=== PATIENT | female | born 1960 | race Caucasian/White ===

== ENCOUNTER 2020-09-30 16:48 | Emergency (ER) | payer SELFPAY ==
[2020-09-30 17:10] VITALS: BP 162/75; PULSE 88; RESP 20; TEMP 36.9; O2SAT 100
--- NOTE | 2020-09-30 17:23 | ED.SKABFB ---
HPI - Skin/Abscess/Foreign Bdy General Chief complaint: Skin/Abscess/Foreign Body Stated complaint: Cellulitis Time Seen by Provider: 09/30/20 17:16 Source: patient and RN notes reviewed Mode of arrival: ambulatory Limitations: no limitations History of Present Illness HPI narrative: Patient presents today complaining of a 2-day history of redness and possible cellulitis to her face. States it occasionally itches. Denies pain. States it is not continuing to worsen, but states it may be slightly improving. Denies any drainage. She has been using some antibacterial cream at home. History of diabetes. MD complaint: other ( Cellulitis ) Related Data Home Medications Medication Instructions Recorded Confirmed gabapentin 300 mg PO BID 09/30/20 09/30/20 insulin glargine U-300 conc 30 unit SUBCUT DAILY 09/30/20 09/30/20 [Toujeo SoloStar U-300 Insulin] insulin lispro [Humalog KwikPen 1 unit SUBCUT DIRECTED 09/30/20 09/30/20 Insulin] levothyroxine 75 mcg PO DAILY 09/30/20 09/30/20 losartan 25 mg PO DAILY 09/30/20 09/30/20 lovastatin 40 mg PO DAILY 09/30/20 09/30/20 metformin 1,000 mg PO BID 09/30/20 09/30/20 Allergies Allergy/AdvReac Type Severity Reaction Status Date / Time No Known Allergies Allergy Unknown Unverified 09/30/20 17:23 Review of Systems Review of Systems: Narrative: CONSTITUTIONAL: Denies body aches, fever, chills, or sweats. EYES: Denies visual changes, redness, or discharge. ENT: Denies rhinorrhea, congestion, sore throat, or otalgia. CARDIOVASCULAR: Denies chest pain, palpitations, or edema. RESPIRATORY: Denies cough or dyspnea. GASTROINTESTINAL: Denies abdominal pain, nausea, vomiting, or diarrhea. GENITOURINARY: Denies dysuria or hematuria. SKIN: Denies rash, itching, or wounds. + Redness to face MUSCULOSKELETAL: Denies back pain, joint pain, or myalgia. NEUROLOGIC: Denies headache, numbness, tingling, or weakness. PSYCH: Denies depression or anxiety. [facility] Past Medical History Medical History (Updated 09/30/20 @ 17:30 by Lea Whitehead, [facility], ) Diabetes Hypercholesterolemia Hypertension Hypothyroidism Neuropathy Surgical History Surgical History (Updated 09/30/20 @ 17:30 by Lea Whitehead, [facility], ) H/O tubal ligation Comments At time of signature, I have reviewed and agree with nursing past medical, surgical, social and family history unless otherwise noted. Please see nursing chart for further information. There is no relevant family history pertinent to the presenting complaint Exam Narrative: Exam Narrative: GENERAL: Well-appearing, well-nourished, and in no acute distress. HEAD: Normocephalic, atraumatic. EYES: EOMI. No redness or drainage. Conjunctivae normal. ENT: Mucous membranes pink and moist. Redness and with honey crusting to the proximal half of the nasal bridge extending to the left eyebrow and superior half of the left eyelid. No edema noted. No induration noted. Nontender. No wounds noted. NECK: Normal AROM. CHEST: No respiratory distress. EXTREMITIES: Normal range of motion. No edema. SKIN: Warm, dry, no rash. Capillary refill normal. Normal skin turgor. NEURO: No focal deficits. Alert and oriented x3. Gait steady. PSYCH: Normal affect. No signs of depression or anxiety. Course Vital Signs Vital signs: Vital Signs Temperature 98.4 F 09/30/20 17:10 Pulse Rate 88 09/30/20 17:10 Respiratory Rate 09/30/20 17:10 Blood Pressure 162/75 H 09/30/20 17:10 Pulse Oximetry 100 09/30/20 17:10 Temperature 98.4 F 09/30/20 17:10 Pulse Rate 88 09/30/20 17:10 Respiratory Rate 09/30/20 17:10 Blood Pressure 162/75 H 09/30/20 17:10 Pulse Oximetry 100 09/30/20 17:10 Reviewed. Pt has been instructed to follow up with her PCP regarding her elevated blood pressure today. MDM - Skin/Abscess/Foreign Bdy Differential Diagnosis Differential diagnosis: Likely abscess of skin or subcutaneous tissue, urticaria, herpes
== END 2020-09-30 17:30 | disposition home or self-care (01) ==
PROVIDERS: Emergency Provider Nurse Practitioner; PCP Internal Medicine
DX: L01.00 Impetigo, unspecified (principal); E78.00 Pure hypercholesterolemia, unspecified; I10 Essential (primary) hypertension; E03.9 Hypothyroidism, unspecified; E11.40 Type 2 diabetes mellitus with diabetic neuropathy, unspecified
CPT/HCPCS: 99203; G0463